=== PATIENT | female | born 1985 | race Caucasian/White ===

== ENCOUNTER 2017-07-31 09:52 | Inpatient (IN) | payer BC ==
[2017-07-31] MEDS ORDERED: Sodium Chloride 0.9% 10 ML Syringe FLUSH PRN (11:00)
[2017-07-31] MEDS ORDERED: Ondansetron 4 MG/2 ML SDV IVPUSH PRN (11:00)
[2017-07-31] MEDS ORDERED: Lactated Ringers 1,000 ML IV SCH (11:00)
[2017-07-31] MEDS ORDERED: Oxytocin/Lactated Ringers 10 UNIT/1,000 ML BAG IV SCH ×2 (11:00)
[2017-07-31] MEDS ORDERED: Bupivacaine 0.25% 10 ML SDV ONE (11:00)
[2017-07-31] MEDS ORDERED: Acetaminophen 325 MG Tab PO PRN ×2 (11:00→17:38)
[2017-07-31] MEDS ORDERED: Nalbuphine 20 MG/1 ML Amp IVPUSH PRN (11:00)
[2017-07-31] MEDS ORDERED: fentaNYL 100 MCG/2 ML SDV EPIDUR PRN (12:45)
[2017-07-31] MEDS ORDERED: Bupivacaine/fentaNYL/NS 100 ML Bag EPIDUR SCH (12:45)
[2017-07-31] MEDS ORDERED: ePHEDrine 50 MG/ML SDV IVPUSH PRN (12:45)
[2017-07-31] MEDS ORDERED: diphenhydrAMINE 50 MG/ML SDV IVPUSH PRN (12:45)
--- NOTE | 2017-07-31 12:57 | PCM.PREANE ---
Preanesthetic Assessment - Anesthesia/Transfusion/Family Hx Anesthesia History: Prior Anesthesia Without Reaction Family History of Anesthesia Reaction: No Transfusion History: No Prior Transfusion(s) - Review of Systems General: No Symptoms Pulmonary: No Symptoms Cardiovascular: No Symptoms Gastrointestinal: No Symptoms Neurological: No Symptoms Other: Reports: Thyroid Problems - Physical Assessment O2 Sat by Pulse Oximetry: 100 Respiratory Rate: 18 Vital Signs: Last Vital Signs Temp 99.6 F 07/31/17 11:33 Pulse 85 07/31/17 11:33 Resp 18 07/31/17 11:33 BP 131/72 07/31/17 11:33 Pulse Ox 100 07/31/17 11:33 Height: 5 ft 6 in Weight: 113.398 kg ASA Class: 2 Mental Status: Alert & Oriented x3 Airway Class: Mallampati = 1 Dentition: Reports: Normal Dentition Thyro-Mental Finger Breadths: 3 Mouth Opening Finger Breadths: 3 ROM/Head Extension: Full Lungs: Clear to Auscultation, Normal Respiratory Effort Cardiovascular: Regular Rate, Regular Rhythm - Lab Values: Laboratory Last Values WBC 7.73 K/mm3 (3.98-10.04) 07/31/17 11:43 RBC 4.26 M/mm3 (3.98-5.22) 07/31/17 11:43 Hgb 12.3 gm/L (11.2-15.7) 07/31/17 11:43 Hct 35.8 % (34.1-44.9) 07/31/17 11:43 MCV 84.0 fl (79.4-94.8) 07/31/17 11:43 MCH 28.9 pg (25.6-32.2) 07/31/17 11:43 MCHC 34.4 g/dl (32.2-35.5) 07/31/17 11:43 RDW Std Deviation 43.7 fL (36.4-46.3) 07/31/17 11:43 Plt Count 241 K/mm3 (182-369) 07/31/17 11:43 MPV 9.4 fl (9.4-12.3) 07/31/17 11:43 Blood Type O POSITIVE 07/31/17 11:43 Gel Antibody Screen Negative 07/31/17 11:43 - Allergies Allergies/Adverse Reactions: Allergies Allergy/AdvReac Type Severity Reaction Status Date / Time No Known Allergies Allergy Verified 08/26/15 23:30 - Blood Blood Available: No - Acknowledgements Anesthesia Type Planned: Epidural Pt an Appropriate Candidate for the Planned Anesthesia: Yes Alternatives and Risks of Anesthesia Discussed w Pt/Guardian: Yes Pt/Guardian Understands and Agrees with Anesthesia Plan: Yes PreAnesthesia Questionnaire - Past Health History Medical/Surgical History: Denies Medical/Surgical History HEENT History: Reports: None Cardiovascular History: Reports: None Respiratory History: Reports: None Gastrointestinal History: Reports: GERD (with preg) Genitourinary History: Reports: Renal Calculus, UTI, Recurrent Other Genitourinary History: Pt has a history of Frequent UTI's, none with this current . 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: 5 Other OB/BYN History: 14 weeks Musculoskeletal History: Reports: Back Pain, Chronic Other Neuro History: Bilateral Sciaitca Endocrine/Metabolic History: Reports: Hypothyroidism, Obesity/BMI 30+ - Past Surgical History HEENT Surgical History: Reports: Oral Surgery Cardiovascular Surgical History: Reports: None Respiratory Surgical History: Reports: None GI Surgical History: Reports: None Female Surgical History: Reports: Breast Implant - History Comment History Comment: armour med and vit for home meds - SUBSTANCE USE Smoking Status *Q: Former Smoker (as a teenager) Tobacco Use Within Last Twelve Months: No Second Hand Smoke Exposure: No Days Per Week of Alcohol Use: 0 Recreational Drug Use History: No - HOME MEDS Home Medications: Home Meds Promethazine [Phenergan] 25 mg PO Q6H PRN #6 tablet 08/27/15 [Rx] Cephalexin [Keflex] 500 mg PO Q6HR #24 cap 02/20/16 [Rx] Docusate Sodium [Colace] 100 mg PO BID PRN #0 cap 02/20/16 [Rx] Ibuprofen [IJD: Ibuprofen] 600 mg PO Q4H PRN #0 tablet 02/20/16 [Rx] Levothyroxine [Synthroid] 100 mcg PO ACBREAKFAST tablet 02/20/16 [Rx] - CURRENT (IN HOUSE) MEDS Current Meds: Current Medications Acetaminophen (Tylenol) 650 mg PO Q4H PRN PRN Reason: Pain (Mild 1-3) and fever Diphenhydramine HCl (Benadryl) 25 mg IVPUSH Q6H PRN PRN Reason: pruritis Ephedrine Sulfate (Ephedrine Sulfate) 5 mg IVPUSH ASDIRECTED PRN PRN Reason: Hypotension Fentanyl (Sublimaze) 100 mcg EPIDUR Q3H PRN PRN Reason: Pain Fentanyl/Bupivacaine HCl (Fentanyl/Bupivacaine/Ns 2 Mcg-0.125% 100 Ml) 100 ml EPIDUR ASDIRECTED SHANTELL Lactated Ringer's (Ringers, Lactated) 1,000 mls @ 40 mls/hr IV ASDIRECTED SHANTELL Last Admin: 07/31/17 11:45 Dose: 40 mls/hr Oxytocin/Lactated Ringer's (Pitocin In Lr 10 Units/1,000 Ml) 10 unit in 1,000 mls @ 12 mls/hr IV TITRATE SHANTELL; 2 MUNITS/MIN PRN Reason: Protocol Last Admin: 07/31/17 11:55 Dose: 2 munits/min, 12 mls/hr Oxytocin/Lactated Ringer's (Pitocin In Lr 10 Units/1,000 Ml) 10 unit in 1,000 mls @ 500 mls/hr IV .CONTINUOUS SHANTELL Nalbuphine HCl (Nubain) 10 mg IVPUSH Q2H PRN PRN Reason: Pain (moderate 4-6) Ondansetron HCl (Zofran) 4 mg IVPUSH Q4H PRN PRN Reason: Nausea/Vomiting Sodium Chloride (Saline Flush) 10 ml FLUSH ASDIRECTED PRN PRN Reason: Keep Vein Open
--- NOTE | 2017-07-31 13:06 | PCM.LDHP ---
L&D History of Present Illness - General Date of Service: 07/31/17 Admit Problem/Dx: Patient Status Order with Admit Dx/Problem 07/31/17 11:01 Patient Status [ADT] Routine Admission Diagnosis/Problem Admission Diagnosis/Problem Normal Source of Information: Patient History Limitations: Reports: No Limitations - History of Present Illness Introduction:: Patient is a 32 y/o at 39 0/7 wks who presents for IOL given distance from hospital. Doing well today. Some contractions, but nothing patterned. Notes good FM. No other concerns - Related Data Allergies/Adverse Reactions: Allergies Allergy/AdvReac Type Severity Reaction Status Date / Time No Known Allergies Allergy Verified 08/26/15 23:30 Home Medications: Home Meds Promethazine [Phenergan] 25 mg PO Q6H PRN #6 tablet 08/27/15 [Rx] Cephalexin [Keflex] 500 mg PO Q6HR #24 cap 02/20/16 [Rx] Docusate Sodium [Colace] 100 mg PO BID PRN #0 cap 02/20/16 [Rx] Ibuprofen [IJD: Ibuprofen] 600 mg PO Q4H PRN #0 tablet 02/20/16 [Rx] Levothyroxine [Synthroid] 100 mcg PO ACBREAKFAST tablet 02/20/16 [Rx] Past Medical History Gastrointestinal History: Reports: GERD (with preg) Genitourinary History: Reports: Renal Calculus, UTI, Recurrent Other Genitourinary History: Pt has a history of Frequent UTI's, none with this current . 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 Musculoskeletal History: Reports: Back Pain, Chronic Endocrine/Metabolic History: Reports: Hypothyroidism, Obesity/BMI 30+ - Past Surgical History HEENT Surgical History: Reports: Oral Surgery Female Surgical History: Reports: Breast Implant Social & Family History - Family History Family Medical History: Noncontributory - Tobacco Use Smoking Status *Q: Former Smoker (as a teenager) Second Hand Smoke Exposure: No - Caffeine Use Caffeine Use: Reports: None - Alcohol Use Alcohol Use History: No Days Per Week of Alcohol Use: 0 - Recreational Drug Use Recreational Drug Use: No H&P Review of Systems - Review of Systems: Review Of Systems: See Below General: Reports: No Symptoms Pulmonary: Reports: No Symptoms Cardiovascular: Reports: No Symptoms Gastrointestinal: Reports: No Symptoms Genitourinary: Reports: No Symptoms Musculoskeletal: Reports: No Symptoms Neurological: Reports: No Symptoms L&D Exam - Exam Exam: See Below - Vital Signs Vital Signs: Last Vital Signs Temp 37.6 C 07/31/17 11:33 Pulse 85 07/31/17 11:33 Resp 18 07/31/17 12:57 BP 131/72 07/31/17 11:33 Pulse Ox 100 07/31/17 12:57 Weight: 113.398 kg - OB Specific Contraction Intensity: Irritability Movement: Active Heart Tones: Present Heart Tones per Min: 135 Heart Rate (FHR) Variability: Moderate (6-25 bmp) Presentation: Vertex - Perez Score Perez Score Cervix Position: Midposition Perez Score Consistency: Soft Perez Score Effacement: 51-70% Perez Score Dilation: 3-4 cm Perez Score Infant's Station: -3 Perez Score Total: 7 - Exam General: Alert, Oriented, Cooperative Lungs: Clear to Auscultation, Normal Respiratory Effort Cardiovascular: Regular Rate, Regular Rhythm GI/Abdominal Exam: Soft, Non-Tender Genitourinary: Normal external exam Extremities: Normal Inspection Skin: Warm, Dry, Intact - Patient Data Lab Results Last 24 hrs: Laboratory Results - last 24 hr 07/31/17 07/31/17 Range/Units 11:43 11:43 WBC 7.73 (3.98-10.04) K/mm3 RBC 4.26 (3.98-5.22) M/mm3 Hgb 12.3 (11.2-15.7) gm/L Hct 35.8 (34.1-44.9) % MCV 84.0 (79.4-94.8) fl MCH 28.9 (25.6-32.2) pg MCHC 34.4 (32.2-35.5) g/dl RDW Std Deviation 43.7 (36.4-46.3) fL Plt Count 241 (182-369) K/mm3 MPV 9.4 (9.4-12.3) fl Blood Type O POSITIVE Gel Antibody Screen Negative Result Diagrams: 07/31/17 11:43 - Problem List (1) 39 weeks gestation of SNOMED Code(s): 23586159 ICD Code: Z3A.39 - 39 WEEKS GESTATION OF Status: Acute Current Visit: Yes Problem List Initiated/Reviewed/Updated: Yes Orders Last 24hrs: Active Orders 24 hr Category Date Time Status Patient Status [ADT] Routine ADT 07/31/17 11:01 Active Activity as Tolerated [RC] PFP Care 07/31/17 11:00 Active Communication Order [RC] ASDIRECTED Care 07/31/17 11:00 Active Communication Order [RC] ASDIRECTED Care 07/31/17 11:00 Active Communication Order [RC] ASDIRECTED Care 07/31/17 11:00 Active Heart Tones [RC] ASDIRECTED Care 07/31/17 11:01 Active Monitoring [RC] INTERMITTENT Care 07/31/17 11:00 Active Notify Provider [RC] ASDIRECTED Care 07/31/17 11:00 Active Notify Provider [RC] ASDIRECTED Care 07/31/17 12:45 Active Notify Provider [RC] PFP Care 07/31/17 11:00 Active Notify Provider [RC] PRN Care 07/31/17 11:00 Active Peripheral IV Care [RC] . DIRECTED Care 07/31/17 11:01 Active Vaginal Exam [RC] ASDIRECTED Care 07/31/17 11:00 Active Vital Signs [RC] ASDIRECTED Care 07/31/17 11:00 Active Vital Signs [RC] PER UNIT ROUTINE Care 07/31/17 11:00 Active Regular Diet [DIET] Diet 07/31/17 Breakfast Active Acetaminophen [Tylenol] Med 07/31/17 11:00 Active 650 mg PO Q4H PRN Bupivacaine/fentaNYL/NS [fentaNYL/Bupivacaine/NS 2 MCG- Med 07/31/17 12:45 Ordered 0.125% 100 ML] 100 ml EPIDUR ASDIRECTED Lactated Ringers [Ringers, Lactated] 1,000 ml Med 07/31/17 11:00 Active IV ASDIRECTED Nalbuphine [Nubain] Med 07/31/17 11:00 Active 10 mg IVPUSH Q2H PRN Ondansetron [Zofran] Med 07/31/17 11:00 Active 4 mg IVPUSH Q4H PRN Oxytocin/Lactated Ringers [Pitocin in LR 10 Units/1,000 Med 07/31/17 11:00 Active ML] 10 unit in 1,000 ml IV .CONTINUOUS Oxytocin/Lactated Ringers [Pitocin in LR 10 Units/1,000 Med 07/31/17 11:00 Active ML] 10 unit in 1,000 ml IV TITRATE Sodium Chloride 0.9% [Saline Flush] Med 07/31/17 11:00 Active 10 ml FLUSH ASDIRECTED PRN diphenhydrAMINE [Benadryl] Med 07/31/17 12:45 Ordered 25 mg IVPUSH Q6H PRN ePHEDrine [ePHEDrine Sulfate] Med 07/31/17 12:45 Ordered 5 mg IVPUSH ASDIRECTED PRN fentaNYL [Sublimaze] Med 07/31/17 12:45 Ordered 100 mcg EPIDUR Q3H PRN Electronic Heart Tones Ext w TOCO [WOMSER] Oth 07/31/17 11:00 Ordered Routine Electronic Heart Tones Internal [WOMSER] Per Unit Ot 07/31/17 11:00 Ordered Routine Peripheral IV Insertion Adult [OM.PC] Routine Oth 07/31/17 11:00 Ordered Resuscitation Status Routine Resus Stat 07/31/17 11:00 Ordered Medication Orders Acetaminophen (Tylenol) 650 mg PO Q4H PRN PRN Reason: Pain (Mild 1-3) and fever Diphenhydramine HCl (Benadryl) 25 mg IVPUSH Q6H PRN PRN Reason: pruritis Ephedrine Sulfate (Ephedrine Sulfate) 5 mg IVPUSH ASDIRECTED PRN PRN Reason: Hypotension Fentanyl (Sublimaze) 100 mcg EPIDUR Q3H PRN PRN Reason: Pain Fentanyl/Bupivacaine HCl (Fentanyl/Bupivacaine/Ns 2 Mcg-0.125% 100 Ml) 100 ml EPIDUR ASDIRECTED SHANTELL Lactated Ringer's (Ringers, Lactated) 1,000 mls @ 40 mls/hr IV ASDIRECTED SHANTELL Last Admin: 07/31/17 11:45 Dose: 40 mls/hr Oxytocin/Lactated Ringer's (Pitocin In Lr 10 Units/1,000 Ml) 10 unit in 1,000 mls @ 12 mls/hr IV TITRATE SHANTELL; 2 MUNITS/MIN PRN Reason: Protocol Last Admin: 07/31/17 11:55 Dose: 2 munits/min, 12 mls/hr Oxytocin/Lactated Ringer's (Pitocin In Lr 10 Units/1,000 Ml) 10 unit in 1,000 mls @ 500 mls/hr IV .CONTINUOUS SHANTELL Nalbuphine HCl (Nubain) 10 mg IVPUSH Q2H PRN PRN Reason: Pain (moderate 4-6) Ondansetron HCl (Zofran) 4 mg IVPUSH Q4H PRN PRN Reason: Nausea/Vomiting Sodium Chloride (Saline Flush) 10 ml FLUSH ASDIRECTED PRN PRN Reason: Keep Vein Open Assessment/Plan Comment:: 32 y/o at 39 0/7 wks presents for IOL for distance from hospital * CBC and T&S * GBS negative, no need for antibiotics * Pitocin for IOL with AROM when able * Pain management per patient preference
--- NOTE | 2017-07-31 16:07 | PCM48HPAN ---
Post Anesthesia Note - EVALUATION WITHIN 48HRS OF ANESTHETIC Vital Signs in Normal Range: Yes Patient Participated in Evaluation: Yes Respiratory Function Stable: Yes Airway Patent: Yes Cardiovascular Function Stable: Yes Hydration Status Stable: Yes Pain Control Satisfactory: Yes (Pian let up but epidural didn't have enough time to work. ) Nausea and Vomiting Control Satisfactory: Yes Mental Status Recovered: Yes Pulse Rate: 98 SaO2: 100 Resp Rate: 18 Blood Pressure: 120/66
[2017-07-31] MEDS ORDERED: Docusate Sodium 100 MG Cap PO PRN (17:38)
[2017-07-31] MEDS ORDERED: Lanolin 100% Cream 7 GM Tube TOP PRN (17:38)
[2017-07-31] MEDS ORDERED: Benzocaine/Menthol 20%-0.5% Spray 56 GM Canister TOP PRN (17:38)
[2017-07-31] MEDS ORDERED: Ibuprofen 600 MG Tab PO PRN (17:38)
[2017-07-31] MEDS ORDERED: Witch Hazel Medicated Pads 100/Jar TOP PRN (17:38)
--- NOTE | 2017-07-31 21:37 | PCM.DEL ---
L & D Note - General Info Date of Service: 07/31/17 - Delivery Note Labor: Induced by ARM, Induced by Oxytocin Delivery Outcome: Livebirth Infant Delivery Method: Spontaneous Vaginal Delivery-Single Infant Delivery Mode: Spontaneous Presentation: Left Occiput Anterior (TIGIST) Nuchal Cord: None Anesthesia Type: Epidural Amniotic Fluid Description: Clear Episiotomy Type: None Laceration: None Placenta: Intact, Spontaneous Cord: 3 Vessels Estimated Blood Loss: 200 Resuscitation Needed: Yes [place]: Suctioned, Bulb Syringe, Stimulated, Warmed, [place] Used Delivery Comments (Free Text/Narrative):: Patient found to be complete and began pushing. With maternal pushing effort head delivered from an TIGIST presentation. No nuchal cord present. With gentle downward traction shoulders and body delivered. placed on maternal abdomen. Cord clamped and cut. Cord blood obtained. Placenta allowed time to separate and expelled intact. Inspection of the perineum showed no lacerations. - Patient Data Vitals - Most Recent: Last Vital Signs Temp 37.6 C 07/31/17 11:33 Pulse 98 07/31/17 16:07 Resp 18 07/31/17 17:38 BP 108/51 L 07/31/17 17:38 Pulse Ox 100 07/31/17 16:07 Weight - Most Recent: 113.398 kg I&O - Last 24 Hours: Intake & Output 07/31/17 07/31/17 07/31/17 06:59 14:59 22:59 Intake Total 0 Balance 0 Lab Results Last 24 Hours: Laboratory Results - last 24 hr 07/31/17 07/31/17 Range/Units 11:43 11:43 WBC 7.73 (3.98-10.04) K/mm3 RBC 4.26 (3.98-5.22) M/mm3 Hgb 12.3 (11.2-15.7) gm/L Hct 35.8 (34.1-44.9) % MCV 84.0 (79.4-94.8) fl MCH 28.9 (25.6-32.2) pg MCHC 34.4 (32.2-35.5) g/dl RDW Std Deviation 43.7 (36.4-46.3) fL Plt Count 241 (182-369) K/mm3 MPV 9.4 (9.4-12.3) fl Blood Type O POSITIVE Gel Antibody Screen Negative Med Orders - Current: Current Medications Acetaminophen (Tylenol) 650 mg PO Q4H PRN PRN Reason: mild pain or fever Benzocaine/Menthol (Dermoplast Pain Relief [place]) 0 gm TOP ASDIRECTED PRN PRN Reason: Perineal Comfort Measure Docusate Sodium (Colace) 100 mg PO BID PRN PRN Reason: Constipation Emollient Ointment (Lansinoh Hpa) 0 gm TOP ASDIRECTED PRN PRN Reason: Sore Nipples Ibuprofen (Motrin) 600 mg PO Q6H PRN PRN Reason: Mild pain or fever Levothyroxine Sodium (Synthroid) 100 mcg PO ACBREAKFAST SHANTELL Ruthie Casillas (Tucks) 1 pad TOP ASDIRECTED PRN PRN Reason: Hemorrhoid pain Discontinued Medications Acetaminophen (Tylenol) 650 mg PO Q4H PRN PRN Reason: Pain (Mild 1-3) and fever Diphenhydramine HCl (Benadryl) 25 mg IVPUSH Q6H PRN PRN Reason: pruritis Ephedrine Sulfate (Ephedrine Sulfate) 5 mg IVPUSH ASDIRECTED PRN PRN Reason: Hypotension Fentanyl (Sublimaze) 100 mcg EPIDUR Q3H PRN PRN Reason: Pain Last Admin: 07/31/17 15:38 Dose: 100 mcg Fentanyl/Bupivacaine HCl (Fentanyl/Bupivacaine/Ns 2 Mcg-0.125% 100 Ml) 100 ml EPIDUR ASDIRECTED SHANTELL Last Admin: 07/31/17 15:38 Dose: 100 ml Lactated Ringer's (Ringers, Lactated) 1,000 mls @ 40 mls/hr IV ASDIRECTED SHANTELL Last Admin: 07/31/17 11:45 Dose: 40 mls/hr Oxytocin/Lactated Ringer's (Pitocin In Lr 10 Units/1,000 Ml) 10 unit in 1,000 mls @ 12 mls/hr IV TITRATE SHANTELL; 2 MUNITS/MIN PRN Reason: Protocol Last Titration: 07/31/17 14:25 Dose: 8 munits/min, 48 mls/hr Oxytocin/Lactated Ringer's (Pitocin In Lr 10 Units/1,000 Ml) 10 unit in 1,000 mls @ 500 mls/hr IV .CONTINUOUS SHANTELL Nalbuphine HCl (Nubain) 10 mg IVPUSH Q2H PRN PRN Reason: Pain (moderate 4-6) Ondansetron HCl (Zofran) 4 mg IVPUSH Q4H PRN PRN Reason: Nausea/Vomiting Sodium Chloride (Saline Flush) 10 ml FLUSH ASDIRECTED PRN PRN Reason: Keep Vein Open - Problem List & Annotations (1) 39 weeks gestation of SNOMED Code(s): 06035314 Code(s): Z3A.39 - 39 WEEKS GESTATION OF Status: Acute Current Visit: Yes (2) Vaginal delivery SNOMED Code(s): 050673188 Code(s): O80 - ENCOUNTER FOR FULL-TERM UNCOMPLICATED DELIVERY Status: Acute Current Visit: Yes - Problem List Review Problem List Initiated/Reviewed/Updated: Yes - My Orders Last 24 Hours: My Active Orders 07/31/17 11:00 Activity as Tolerated [RC] PFP Communication Order [RC] ASDIRECTED Communication Order [RC] ASDIRECTED Communication Order [RC] ASDIRECTED Monitoring [RC] INTERMITTENT Notify Provider [RC] ASDIRECTED Notify Provider [RC] PFP Notify Provider [RC] PRN Vaginal Exam [RC] ASDIRECTED Vital Signs [RC] ASDIRECTED Vital Signs [RC] PER UNIT ROUTINE Resuscitation Status Routine 07/31/17 11:01 Heart Tones [RC] ASDIRECTED 07/31/17 17:38 Activity as Tolerated [RC] PER UNIT ROUTINE Vital Signs [RC] ASDIRECTED Acetaminophen [Tylenol] 650 mg PO Q4H PRN Benzocaine/Menthol [Dermoplast Pain Relief [place]] See Dose Instructions TOP ASDIRECTED PRN Docusate Sodium [Colace] 100 mg PO BID PRN Ibuprofen [Motrin] 600 mg PO Q6H PRN Lanolin [Lansinoh HPA] See Dose Instructions TOP ASDIRECTED PRN Witch Sonja [Tucks] 1 pad TOP ASDIRECTED PRN Assess Lochia [WOMSER] Per Unit Routine Assess Uterine Involution [WOMSER] Per Unit Routine Breast Pump [WOMSER] Per Unit Routine Heat Therapy [OM.PC] PRN Ice Therapy [OM.PC] Per Unit Routine Perineal Care [OM.PC] Per Unit Routine Peripheral IV Discontinue [OM.PC] Routine Sitz Bath [OM.PC] Per Unit Routine 07/31/17 Dinner Regular Diet [DIET] 08/01/17 06:00 Levothyroxine [Synthroid] 100 mcg PO ACBREAKFAST 08/01/17 17:38 Heat Therapy [OM.PC] PRN - Assessment Assessment:: 32 y/o G6 now P6006 PPD#0 from at 39 0/7 wks - Plan Plan:: * Routine cares * Encourage breast feeding * Discharge home in 1-2 days
[2017-08-01] MEDS ORDERED: Levothyroxine 100 MCG Tab PO SCH (06:00)
[2017-08-01 06:10] VITALS: BP 116/74
--- NOTE | 2017-08-01 07:20 | PCM.PNPP ---
- General Info Date of Service: 08/01/17 Functional Status: Reports: Pain Controlled, Tolerating Diet, Ambulating, Urinating - Review of Systems General: Reports: No Symptoms Cardiovascular: Reports: No Symptoms Gastrointestinal: Reports: No Symptoms Genitourinary: Reports: No Symptoms Musculoskeletal: Reports: No Symptoms Neurological: Reports: No Symptoms - Patient Data Vital Signs - Most Recent: Last Vital Signs Temp 37.1 C 08/01/17 05:35 Pulse 86 08/01/17 05:35 Resp 17 08/01/17 05:35 BP 116/74 08/01/17 05:35 Pulse Ox 97 08/01/17 05:35 Weight - Most Recent: 113.398 kg I&O - Last 24 Hours: Intake & Output 07/31/17 08/01/17 08/01/17 22:59 06:59 14:59 Intake Total 0 Balance 0 Lab Results - Last 24 Hours: Laboratory Results - last 24 hr 07/31/17 07/31/17 Range/Units 11:43 11:43 WBC 7.73 (3.98-10.04) K/mm3 RBC 4.26 (3.98-5.22) M/mm3 Hgb 12.3 (11.2-15.7) gm/L Hct 35.8 (34.1-44.9) % MCV 84.0 (79.4-94.8) fl MCH 28.9 (25.6-32.2) pg MCHC 34.4 (32.2-35.5) g/dl RDW Std Deviation 43.7 (36.4-46.3) fL Plt Count 241 (182-369) K/mm3 MPV 9.4 (9.4-12.3) fl Blood Type O POSITIVE Gel Antibody Screen Negative Med Orders - Current: Current Medications Acetaminophen (Tylenol) 650 mg PO Q4H PRN PRN Reason: mild pain or fever Benzocaine/Menthol (Dermoplast Pain Relief [place]) 0 gm TOP ASDIRECTED PRN PRN Reason: Perineal Comfort Measure Docusate Sodium (Colace) 100 mg PO BID PRN PRN Reason: Constipation Emollient Ointment (Lansinoh Hpa) 0 gm TOP ASDIRECTED PRN PRN Reason: Sore Nipples Ibuprofen (Motrin) 600 mg PO Q6H PRN PRN Reason: Mild pain or fever Last Admin: 02/22/18 05:32 Dose: 600 mg Levothyroxine Sodium (Synthroid) 100 mcg PO ACBREAKFAST SHANTELL Last Admin: 08/01/17 05:32 Dose: 100 mcg Witch Sonja (Tucks) 1 pad TOP ASDIRECTED PRN PRN Reason: Hemorrhoid pain Discontinued Medications Acetaminophen (Tylenol) 650 mg PO Q4H PRN PRN Reason: Pain (Mild 1-3) and fever Diphenhydramine HCl (Benadryl) 25 mg IVPUSH Q6H PRN PRN Reason: pruritis Ephedrine Sulfate (Ephedrine Sulfate) 5 mg IVPUSH ASDIRECTED PRN PRN Reason: Hypotension Fentanyl (Sublimaze) 100 mcg EPIDUR Q3H PRN PRN Reason: Pain Last Admin: 07/31/17 15:38 Dose: 100 mcg Fentanyl/Bupivacaine HCl (Fentanyl/Bupivacaine/Ns 2 Mcg-0.125% 100 Ml) 100 ml EPIDUR ASDIRECTED SHANTELL Last Admin: 07/31/17 15:38 Dose: 100 ml Lactated Ringer's (Ringers, Lactated) 1,000 mls @ 40 mls/hr IV ASDIRECTED SHANTELL Last Admin: 07/31/17 11:45 Dose: 40 mls/hr Oxytocin/Lactated Ringer's (Pitocin In Lr 10 Units/1,000 Ml) 10 unit in 1,000 mls @ 12 mls/hr IV TITRATE SHANTELL; 2 MUNITS/MIN PRN Reason: Protocol Last Titration: 07/31/17 14:25 Dose: 8 munits/min, 48 mls/hr Oxytocin/Lactated Ringer's (Pitocin In Lr 10 Units/1,000 Ml) 10 unit in 1,000 mls @ 500 mls/hr IV .CONTINUOUS SHANTELL Nalbuphine HCl (Nubain) 10 mg IVPUSH Q2H PRN PRN Reason: Pain (moderate 4-6) Ondansetron HCl (Zofran) 4 mg IVPUSH Q4H PRN PRN Reason: Nausea/Vomiting Sodium Chloride (Saline Flush) 10 ml FLUSH ASDIRECTED PRN PRN Reason: Keep Vein Open - Interaction Disposition, : in Room with Family Interaction: Holding Infant Feeding: Attempted ; Nursed Fair/Poor Support Person: - Recovery Exam Fundal Tone: Firm Fundal Level: At Umbilicus Fundal Placement: Midline Lochia Amount: Moderate Lochia Color: Rubra/Red Perineum Description: Intact, Minimal Bruising/Swelling Bladder Status: Voiding - Exam General: Alert, Oriented, Cooperative GI/Abdominal Exam: Soft, Non-Tender Extremities: Normal Inspection Skin: Warm, Dry, Intact - Problem List & Annotations (1) 39 weeks gestation of SNOMED Code(s): 92041381 Code(s): Z3A.39 - 39 WEEKS GESTATION OF Status: Acute Current Visit: Yes (2) Vaginal delivery SNOMED Code(s): 757928001 Code(s): O80 - ENCOUNTER FOR FULL-TERM UNCOMPLICATED DELIVERY Status: Acute Current Visit: Yes - Problem List Review Problem List Initiated/Reviewed/Updated: Yes - My Orders Last 24 Hours: My Active Orders 07/31/17 11:00 Activity as Tolerated [RC] PFP Communication Order [RC] ASDIRECTED Communication Order [RC] ASDIRECTED Communication Order [RC] ASDIRECTED Monitoring [RC] INTERMITTENT Notify Provider [RC] ASDIRECTED Notify Provider [RC] PFP Notify Provider [RC] PRN Vaginal Exam [RC] ASDIRECTED Vital Signs [RC] ASDIRECTED Vital Signs [RC] PER UNIT ROUTINE Resuscitation Status Routine 07/31/17 11:01 Heart Tones [RC] ASDIRECTED 07/31/17 17:38 Activity as Tolerated [RC] PER UNIT ROUTINE Vital Signs [RC] ASDIRECTED Acetaminophen [Tylenol] 650 mg PO Q4H PRN Benzocaine/Menthol [Dermoplast Pain Relief [place]] See Dose Instructions TOP ASDIRECTED PRN Docusate Sodium [Colace] 100 mg PO BID PRN Ibuprofen [Motrin] 600 mg PO Q6H PRN Lanolin [Lansinoh HPA] See Dose Instructions TOP ASDIRECTED PRN Witch Sonja [Tucks] 1 pad TOP ASDIRECTED PRN Assess Lochia [WOMSER] Per Unit Routine Assess Uterine Involution [WOMSER] Per Unit Routine Breast Pump [WOMSER] Per Unit Routine Heat Therapy [OM.PC] PRN Ice Therapy [OM.PC] Per Unit Routine Perineal Care [OM.PC] Per Unit Routine Peripheral IV Discontinue [OM.PC] Routine Sitz Bath [OM.PC] Per Unit Routine 07/31/17 Dinner Regular Diet [DIET] 08/01/17 06:00 Levothyroxine [Synthroid] 100 mcg PO ACBREAKFAST 08/01/17 07:20 Ready for Discharge [RC] PER UNIT ROUTINE 08/01/17 17:38 Heat Therapy [OM.PC] PRN - Assessment Assessment:: 32 y/o G6 now P6006 PPD#1 from at 39 0/7 wks - Plan Plan:: * Routine cares * Encourage breast feeding * Discharge home today
--- NOTE | 2017-08-01 07:21 | PCM.DCSUM1 ---
Discharge Summary - Discharge Data Discharge Date: 08/01/17 Discharge Disposition: Home, Self-Care 01 Condition: Good - Discharge Diagnosis/Problem(s) (1) 39 weeks gestation of SNOMED Code(s): 40464236 ICD Code: Z3A.39 - 39 WEEKS GESTATION OF Status: Acute Current Visit: Yes (2) Vaginal delivery SNOMED Code(s): 945505429 ICD Code: O80 - ENCOUNTER FOR FULL-TERM UNCOMPLICATED DELIVERY Status: Acute Current Visit: Yes - Patient Summary/Data Complications: None Consults: None Recommended Follow-up Testing/Procedures: Follow up in 4-6 weeks for check Hospital Course: 32-year-old woman presented at 39-0/7 weeks gestion for indution of labor given she lived 1.5 hours away from hospital. Induction begun with Pitocin and then AROM. She progressed rapidly to complete dilation and underwent an uncomplicated vaginal delivery. See delivery note for full details. she did well and was discharged home on day #1 - Patient Instructions Diet: Regular Diet as Tolerated Activity: As Tolerated Activity, Other: Pelvic Rest for 6 weeks Driving: May Drive Today Showering/Bathing: May Shower Showering/Bathing, Other: May Bathe Notify Provider of: Fever, Increased Pain, Swelling and Redness, Drainage, Nausea and/or Vomiting - Discharge Plan Home Medications: Home Meds Docusate Sodium [Colace] 100 mg PO BID PRN #0 cap 02/20/16 [Rx] Ibuprofen [IJD: Ibuprofen] 600 mg PO Q4H PRN #0 tablet 02/20/16 [Rx] Levothyroxine [Synthroid] 100 mcg PO ACBREAKFAST tablet 02/20/16 [Rx] Referrals: Laurie Koenig MD [Physician] - (4-6 weeks for check ) - Discharge Summary/Plan Comment DC Time >30 min.: No - Patient Data Vitals - Most Recent: Last Vital Signs Temp 37.1 C 08/01/17 05:35 Pulse 86 08/01/17 05:35 Resp 17 08/01/17 05:35 BP 116/74 08/01/17 05:35 Pulse Ox 97 08/01/17 05:35 Weight - Most Recent: 113.398 kg I&O - Last 24 hours: Intake & Output 07/31/17 08/01/1708/01/18 22:59 06:59 14:59 Intake Total 0 Balance 0 Lab Results - Last 24 hrs: Laboratory Results - last 24 hr 07/31/17 07/31/17 Range/Units 11:43 11:43 WBC 7.73 (3.98-10.04) K/mm3 RBC 4.26 (3.98-5.22) M/mm3 Hgb 12.3 (11.2-15.7) gm/L Hct 35.8 (34.1-44.9) % MCV 84.0 (79.4-94.8) fl MCH 28.9 (25.6-32.2) pg MCHC 34.4 (32.2-35.5) g/dl RDW Std Deviation 43.7 (36.4-46.3) fL Plt Count 241 (182-369) K/mm3 MPV 9.4 (9.4-12.3) fl Blood Type O POSITIVE Gel Antibody Screen Negative Med Orders - Current: Current Medications Acetaminophen (Tylenol) 650 mg PO Q4H PRN PRN Reason: mild pain or fever Benzocaine/Menthol (Dermoplast Pain Relief Hagerman) 0 gm TOP ASDIRECTED PRN PRN Reason: Perineal Comfort Measure Docusate Sodium (Colace) 100 mg PO BID PRN PRN Reason: Constipation Emollient Ointment (Lansinoh Hpa) 0 gm TOP ASDIRECTED PRN PRN Reason: Sore Nipples Ibuprofen (Motrin) 600 mg PO Q6H PRN PRN Reason: Mild pain or fever Last Admin: 08/01/17 05:32 Dose: 600 mg Levothyroxine Sodium (Synthroid) 100 mcg PO ACBREAKFAST SHANTELL Last Admin: 08/01/17 05:32 Dose: 100 mcg Witch Sonja (Tucks) 1 pad TOP ASDIRECTED PRN PRN Reason: Hemorrhoid pain Discontinued Medications Acetaminophen (Tylenol) 650 mg PO Q4H PRN PRN Reason: Pain (Mild 1-3) and fever Diphenhydramine HCl (Benadryl) 25 mg IVPUSH Q6H PRN PRN Reason: pruritis Ephedrine Sulfate (Ephedrine Sulfate) 5 mg IVPUSH ASDIRECTED PRN PRN Reason: Hypotension Fentanyl (Sublimaze) 100 mcg EPIDUR Q3H PRN PRN Reason: Pain Last Admin: 07/31/17 15:38 Dose: 100 mcg Fentanyl/Bupivacaine HCl (Fentanyl/Bupivacaine/Ns 2 Mcg-0.125% 100 Ml) 100 ml EPIDUR ASDIRECTED SHANTELL Last Admin: 07/31/17 15:38 Dose: 100 ml Lactated Ringer's (Ringers, Lactated) 1,000 mls @ 40 mls/hr IV ASDIRECTED SHANTELL Last Admin: 07/31/17 11:45 Dose: 40 mls/hr Oxytocin/Lactated Ringer's (Pitocin In Lr 10 Units/1,000 Ml) 10 unit in 1,000 mls @ 12 mls/hr IV TITRATE SHANTELL; 2 MUNITS/MIN PRN Reason: Protocol Last Titration: 07/31/17 14:25 Dose: 8 munits/min, 48 mls/hr Oxytocin/Lactated Ringer's (Pitocin In Lr 10 Units/1,000 Ml) 10 unit in 1,000 mls @ 500 mls/hr IV .CONTINUOUS SHANTELL Nalbuphine HCl (Nubain) 10 mg IVPUSH Q2H PRN PRN Reason: Pain (moderate 4-6) Ondansetron HCl (Zofran) 4 mg IVPUSH Q4H PRN PRN Reason: Nausea/Vomiting Sodium Chloride (Saline Flush) 10 ml FLUSH ASDIRECTED PRN PRN Reason: Keep Vein Open *Q Meaningful Use (DIS) - VTE *Q VTE Criteria *Q: - Stroke *Q Stroke Criteria *Q: - AMI *Q AMI Criteria *Q:
== END 2017-08-01 17:30 | disposition home or self-care (01) | DRG 560 ==
LOC: JD.OB 09:52 → OBSVTOIN 15:50 → JD.OB 15:50
PROVIDERS: ADMIT Obstetrics & Gynecology; ATTEND Obstetrics & Gynecology
PROC: 10E0XZZ Delivery of Products of Conception, External Approach (ICD-10-PCS; principal; 2017-07-31)
PROC: 3E033VJ Introduction of Other Hormone into Peripheral Vein, Percutaneous Approach (ICD-10-PCS; 2017-07-31)
PROC: 10907ZC Drainage of Amniotic Fluid, Therapeutic from Products of Conception, Via Natural or Artificial Opening (ICD-10-PCS; 2017-07-31)
PROC: 00HU33Z Insertion of Infusion Device into Spinal Canal, Percutaneous Approach (ICD-10-PCS; 2017-07-31)
PROC: 3E0R3BZ Introduction of Anesthetic Agent into Spinal Canal, Percutaneous Approach (ICD-10-PCS; 2017-07-31)
DX: O99.284 Endocrine, nutritional and metabolic diseases complicating childbirth (principal); E03.9 Hypothyroidism, unspecified; Z3A.39 39 weeks gestation of pregnancy; Z37.0 Single live birth; Z79.899 Other long term (current) drug therapy
CPT/HCPCS: 36415; 59409; 85027; 86850; 86900; 86901; A9270-GY; J2590; J3010; J7120